=== PATIENT | male | born 1995 | race Caucasian/White ===

== ENCOUNTER 2016-09-15 07:58 | Day surgery (SDC) | payer OTHER ==
[2016-09-15] VITALS (14 sets, daily range): BP systolic 95–123; BP diastolic 34–80
[~2016-09-15] VITALS: Ht 177.8 cm; Wt 83.9 kg
--- NOTE | 2016-09-15 07:17 | Pre-Procedure Note/Attestation ---
Pre-Procedure Note/Attestation Complete Prior to Procedure Planned Procedure: right Procedure Narrative: knee arthroscopic medial meniscus repair Indications for Procedure Pre-Operative Diagnosis: right knee medial meniscus tear Attestation I attest that I discussed the nature of the procedure; its benefits; risks and complications; and alternatives (and the risks and benefits of such alternatives ), prior to the procedure, with the patient (or the patient's legal tax representative). I attest that, if there was a reasonable possibility of needing a blood transfusion, the patient (or the patient's legal tax representative) was given the [facility] standardized written summary, pursuant to the Juarez Davis Blood Safety Act ([place] Health and Safety Code # 1645, as amended). I attest that I re-evaluated the patient just prior to the surgery and that there has been no change in the patient's H&P, except as documented below: PIA BRUNSON Sep 15, 2016 07:17
--- NOTE | 2016-09-15 07:18 | Operative Note - PDOC ---
Operative Note Operative Note Pre-op Diagnosis: right knee medial meniscus tear Procedure: se op report Post-op Diagnosis: same as pre-op plus Operative Findings: consistent w/pre-op dx studies Anesthesia: MAC Specimen: none Complications: none Condition: stable Estimated Blood Loss: none Implant(s) used?: Yes PIA BRUNSON Sep 15, 2016 07:18
[~2016-09-15 07:58] MED LIST: Clindamycin 600mg 50 ML IV ONE; HYDROmorphone 1mg/ml Carpuject SUBQ PRN; NKM; Norco 5mg/325mg tab ORAL PRN; Tylenol #3 tab (300mg/30mg) ORAL PRN; celeBREX 200mg Cap **SURGERY PATIENTS ONLY ORAL ONE; oxyCONTIN 20mg tab ORAL ONE
[2016-09-15 08:29] LABS: APPEARANCE,URINE CLEAR; KETONES,URINE NEGATIVE (NEGATIVE); LEUKOCYTE ESTERASE ,URINE NEGATIVE (NEGATIVE); NITRITE,URINE NEGATIVE (NEGATIVE); PH,URINE 5 (4.5-8.0); PROTEIN,URINE NEGATIVE (NEGATIVE); UROBILINOGEN,URINE NORMAL MG/DL (0.0-1.0)
[2016-09-15 08:37] LABS: BACTERIA,URINE FEW /HPF; MUCUS,URINE FEW /LPF (NONE/OCC); RBC,URINE 0-2 /HPF (0 - 0); SQUAMOUS EPITHELIAL CELL,UR OCCASIONAL /LPF (NONE/OCC); WBC,URINE 0-2 /HPF (0 - 0)
[2016-09-15 09:18] LABS: BASOPHILS % (AUTO) 0.6 % (0.0-2.0); EOSINOPHILS % (AUTO) 1.6 % (0.0-3.0); LYMPHOCYTES % (AUTO) 32.4 % (20.0-45.0); MEAN CORPUSCULAR HEMOGLOBIN 28.5 PG (27.0-31.0); MEAN CORPUSCULAR HGB CONC 32.1 G/DL (32.0-36.0); MEAN CORPUSCULAR VOLUME 89 FL (80-99); MEAN PLATELET VOLUME 6.7 FL (6.5-10.1); NEUTROPHILS % (AUTO) 55.4 % (45.0-75.0); PLATELET COUNT 248 K/UL (150-450); RED BLOOD COUNT 5.94 M/UL (4.70-6.10); RED CELL DISTRIBUTION WIDTH 11.6 % (11.6-14.8); WHITE BLOOD COUNT 5.4 K/UL (4.8-10.8)
[2016-09-15 09:33] LABS: ALANINE AMINOTRANSFERASE 27 U/L (3-41); ALBUMIN/GLOBULIN RATIO 1.7 (1.0-2.7); ANION GAP 10 (5-15); ASPARTATE AMINO TRANSFERASE 28 U/L (5-40); CARBON DIOXIDE 28 mEQ/L (20-30); CHLORIDE 101 mEQ/L (98-107); CREATININE 0.8 mg/dL (0.7-1.2); GLOMERULAR FILTRATION RATE > 60 mL/min (>60); HEMOLYSIS 14; POTASSIUM 4.1 mEQ/L (3.4-4.9); SODIUM 139 mEQ/L (135-145); TOTAL PROTEIN 7.7 g/dL (6.6-8.7)
[2016-09-15] MEDS ORDERED: Kenalog-40 1ml Vial ONE (10:20)
[2016-09-15] MEDS ORDERED: Lidocaine 1% Plain 30 ml INJ ONE (10:20)
[2016-09-15] MEDS ORDERED: Morphine Sulfate PF 0 ML ONE (10:20)
[2016-09-15] MEDS ORDERED: Ketorolac 30mg Inj ONE (10:20)
[2016-09-15] MEDS ORDERED: Bupivacaine 0.25% Inj 30ml INJ ONE (10:21)
[2016-09-15] MEDS ORDERED: Bupivacaine w/Epi 0.5% 30ml Vial INJ ONE (10:21)
[2016-09-15] MEDS ORDERED: Lidocaine 1% 10mg/ml/Epi 0.005mg/ml 30ml vial INJ ONE (10:22)
[2016-09-15] MEDS ORDERED: NS Irrig 1000ml ONE (10:30)
[2016-09-15] MEDS ORDERED: LR 1000ml ONE (10:30)
[2016-09-15] MEDS ORDERED: Midazolam 2mg/2ml Inj ONE (10:30)
[2016-09-15] MEDS ORDERED: Sterile Water Irrig 1000ml IRRIG ONE (10:30)
[2016-09-15] MEDS ORDERED: Propofol 10mg/ml 20ml IV ONE (10:30)
[2016-09-15] MEDS ORDERED: fentaNYL 100 mcg/2 mL IV ONE (10:30)
--- NOTE | 2016-09-15 10:59 | Anethesia Preoperative Eval ---
Anesthesia Pre-op PMH/ROS General Date of Evaluation: Sep 15, 2016 Time of Evaluation: 10:00 Anesthesiologist: adina ASA Score: ASA 1 Mallampati Score Class I : Soft palate, uvula, fauces, pillars visible Class II: Soft palate, uvula, fauces visible Class III: Soft palate, base of uvula visible Class IV: Only hard plate visible Mallampati Classification: Class I Anesthesia History: none Allergies: Coded Allergies: AMOXICILLIN (Verified Allergy, Unknown, 09/14/16) Anesthesia Pre-op Phys. Exam Physician Exam Last Vital Signs Date Time Temp Pulse Resp B/P Pulse Ox O2 Delivery O2 Flow Rate FiO2 09/15/16 09:03 97.7 60 20 113/68 99 Room Air Anesthesia Pre-op A/P Labs Hematology Test 09/15/16 09:00 White Blood Count 5.4 K/UL (4.8-10.8) Red Blood Count 5.94 M/UL (4.70-6.10) Hemoglobin 16.9 G/DL (14.2-18.0) Hematocrit 52.7 % (42.0-52.0) H Mean Corpuscular Volume 89 FL (80-99) Mean Corpuscular Hemoglobin 28.5 PG (27.0-31.0) Mean Corpuscular Hemoglobin Concent 32.1 G/DL (32.0-36.0) Red Cell Distribution Width 11.6 % (11.6-14.8) Platelet Count 248 K/UL (150-450) Mean Platelet Volume 6.7 FL (6.5-10.1) Neutrophils (%) (Auto) 55.4 % (45.0-75.0) Lymphocytes (%) (Auto) 32.4 % (20.0-45.0) Monocytes (%) (Auto) 10.0 % (1.0-10.0) Eosinophils (%) (Auto) 1.6 % (0.0-3.0) Basophils (%) (Auto) 0.6 % (0.0-2.0) Coagulation Test 09/15/16 09:00 Prothrombin Time 10.0 SEC (9.30-11.50) Prothromb Time International Ratio 1.0 (0.9-1.1) Activated Partial Thromboplast Time 28 SEC (23-33) Chemistry Test 09/15/16 09:00 Sodium Level 139 mEQ/L (135-145) Potassium Level 4.1 mEQ/L (3.4-4.9) Chloride Level 101 mEQ/L (98-107) Carbon Dioxide Level 28 mEQ/L (20-30) Anion Gap 10 (5-15) Blood Urea Nitrogen 18 mg/dL (7-23) Creatinine 0.8 mg/dL (0.7-1.2) Estimat Glomerular Filtration Rate > 60 mL/min (>60) Glucose Level 98 mg/dL (74-106) Calcium Level 10.0 mg/dL (8.6-10.2) Total Bilirubin 0.5 mg/dL (0.0-1.2) Aspartate Amino Transf (AST/SGOT) 28 U/L (5-40) Alanine Aminotransferase (ALT/SGPT) 27 U/L (3-41) Alkaline Phosphatase 95 U/L (40-129) Total Protein 7.7 g/dL (6.6-8.7) Albumin 4.9 g/dL (3.5-5.2) Globulin 2.8 g/dL Albumin/Globulin Ratio 1.7 (1.0-2.7) Juan F Estrada MD Sep 15, 2016 10:59
[2016-09-15] MEDS ORDERED: Midazolam 2mg/2ml Inj IVP PRN (11:00)
[2016-09-15] MEDS ORDERED: Ketorolac 30mg Inj IV PRN (11:00)
[2016-09-15] MEDS ORDERED: fentaNYL 100 mcg/2 mL IV PRN (11:00)
--- NOTE | 2016-09-15 11:33 | Immediate Post-Op Evaluation ---
Immediate Post-Op Evalulation Immediate Post-Op Evalulation Procedure: knee arthroscopy Date of Evaluation: Sep 15, 2016 Time of Evaluation: 11:33 Nausea: No Vomiting: No Hydration Status: adequate Given Within 1 Hr of Incision: Yes Juan F Estrada MD Sep 15, 2016 11:33
[2016-09-15] MEDS ORDERED: D5 1/2NS 1,000 ML IV SCH (12:00)
--- NOTE | 2016-09-15 21:15 | Operative Note - Dictated ---
DATE OF OPERATION: 09/15/2016 PREOPERATIVE DIAGNOSIS: Right knee bucket-handle medial meniscus tear. POSTOPERATIVE DIAGNOSIS: Right knee bucket-handle medial meniscus tear. PROCEDURES: 1. Right knee arthroscopic medial meniscus repair to his right knee. 2. Medial and lateral patellofemoral synovectomy. SURGEON: Jay Acuña M.D. ANESTHESIA: General. INDICATION FOR THE PROCEDURE: The patient is a pleasant 21-year-old gentleman, who presented with a locked knee. We attempted to get an MRI, which consistent with a bucket-handle medial meniscus tear. We proceeded with the right knee arthroscopic medial meniscus repair versus meniscectomy. Risks, limitations, expectations and complications of the procedure were discussed in detail including the chance of failure, neurovascular damage, infection, open wound, need for future surgery, risk of anesthesia, medical complications, etc. All questions were addressed. DESCRIPTION OF PROCEDURE: An informed consent was obtained. The patient was brought to the operating room and placed under general anesthesia. Tourniquet was applied to the proximal right leg. The right leg was prepped and draped in a sterile manner. Time-out was performed. A 0.25% Marcaine plain was injected into the right knee. Postop injected 1% lidocaine with epinephrine. Inferolateral Esmarch was used to exsanguinate the extremity. Inferolateral stab incision was then made. Trocar was introduced in the knee joint. There is a displaced medial meniscus bucket-handle tear. Synovectomy of the medial and lateral patellofemoral compartment was performed. Once that was done to allow a better visualization of the bucket-handle tear as well as the ability to put instrument in and out of the knee, the bucket-handle meniscus was then reduced. Once it was reduced, a Fast-Fix anchor was then used to secure the medial meniscus repair. Once that was completed, and the meniscus was noted to be stable, instruments removed. Portal sites were closed with 3-0 Monocryl sutures. The patient was awoken and taken to the recovery room with stable signs. ESTIMATED BLOOD LOSS: Minimal. COMPLICATIONS: None. SPECIMENS: None. IMPLANTS: Two Fast-Fix anchors. Jay Acuña M.D. DR: TERRANCE JOB#: [id number] CC:
== END 2016-09-15 15:10 | disposition home or self-care (01) ==
LOC: SUR 07:58
DX: S83.211A Bucket-handle tear of medial meniscus, current injury, right knee, initial encounter (principal); X58.XXXA Exposure to other specified factors, initial encounter; Y92.89 Other specified places as the place of occurrence of the external cause; Y99.9 Unspecified external cause status; I25.10 Atherosclerotic heart disease of native coronary artery without angina pectoris; I49.9 Cardiac arrhythmia, unspecified; Z88.1 Allergy status to other antibiotic agents
CPT/HCPCS: 36415; 80053; 81001; 85025; 85610; 85730; 94003; 94150; J2250

== ENCOUNTER 2017-06-29 05:57 | Day surgery (SDC) | payer OTHER ==
[~2017-06-29] VITALS: Ht 177.8 cm; Wt 86.2 kg
[2017-06-29] VITALS (13 sets, daily range): BP systolic 112–126; BP diastolic 50–67
[~2017-06-29 05:57] MED LIST changes: -Clindamycin 600mg 50 ML IV ONE; -HYDROmorphone 1mg/ml Carpuject SUBQ PRN; -Norco 5mg/325mg tab ORAL PRN; -Tylenol #3 tab (300mg/30mg) ORAL PRN; -celeBREX 200mg Cap **SURGERY PATIENTS ONLY ORAL ONE; -oxyCONTIN 20mg tab ORAL ONE
[2017-06-29] MEDS ORDERED: oxyCONTIN 20mg tab ORAL SCH (06:00)
[2017-06-29] MEDS ORDERED: Clindamycin 600mg in D5W 50ml IV SCH (06:00)
[2017-06-29] MEDS ORDERED: celeBREX 200mg Cap **SURGERY PATIENTS ONLY ORAL SCH (06:00)
[2017-06-29] MEDS ORDERED: Propofol 200mg/20ml IV ONE (07:01)
[2017-06-29] MEDS ORDERED: Dexamethasone 4mg/ml vial ONE ×2 (07:01→07:35)
[2017-06-29] MEDS ORDERED: Sodium Chloride 10ml vial INJ ONE (07:02)
[2017-06-29] MEDS ORDERED: Lidocaine 1% MPF 10mg/ml 5ml ONE (07:02)
[2017-06-29] MEDS ORDERED: Morphine Sulfate PF 10 ML ONE (07:06)
[2017-06-29] MEDS ORDERED: Ketorolac 30mg Inj ONE (07:06)
[2017-06-29] MEDS ORDERED: EPINEPHrine 1mg/1ml Amp ONE ×2 (07:06→07:35)
[2017-06-29] MEDS ORDERED: Lidocaine 1% 10mg/ml/Epi 0.005mg/ml 30ml vial INJ ONE (07:06)
[2017-06-29] MEDS ORDERED: Kenalog-40 1ml Vial ONE (07:06)
[2017-06-29] MEDS ORDERED: Alfentanil 2ml Inj ONE (07:06)
[2017-06-29] MEDS ORDERED: Bupivacaine 0.25% Inj 30ml INJ ONE (07:07)
[2017-06-29] MEDS ORDERED: LR 1000ml 1,000 ML IVLG SCH (07:11)
[2017-06-29] MEDS ORDERED: Atropine Inj 1mg/10ml Syr IV PRN (07:15)
[2017-06-29] MEDS ORDERED: DiphenhydrAMINE 50mg/ml Inj IVP PRN (07:15)
[2017-06-29] MEDS ORDERED: oxyCODONE HCL/Acetaminophen 5/325mg ORAL PRN (07:15)
[2017-06-29] MEDS ORDERED: LORazepam Inj 2mg/ml 1ml IV PRN (07:15)
[2017-06-29] MEDS ORDERED: HYDROcodone/Acetamin 7.5/325 tab ORAL PRN (07:15)
[2017-06-29] MEDS ORDERED: Hydromorphone 0.5mg/0.5ml inj IVP PRN (07:15)
[2017-06-29] MEDS ORDERED: Labetalol 5mg/ml 20ml vial IV PRN (07:15)
[2017-06-29] MEDS ORDERED: fentaNYL 100 mcg/2 mL IV PRN (07:15)
[2017-06-29] MEDS ORDERED: Norco 5mg/325mg tab ORAL PRN ×2 (07:15→14:01)
[2017-06-29] MEDS ORDERED: Ketorolac 30mg Inj IV PRN ×2 (07:15)
[2017-06-29] MEDS ORDERED: Midazolam 2mg/2ml Inj IVP PRN (07:15)
--- NOTE | 2017-06-29 07:15 | Anethesia Preoperative Eval ---
Anesthesia Pre-op PMH/ROS General Date of Evaluation: Jun 29, 2017 Time of Evaluation: 07:36 Anesthesiologist: Ayla ASA Score: ASA 2 Mallampati Score Class I : Soft palate, uvula, fauces, pillars visible Class II: Soft palate, uvula, fauces visible Class III: Soft palate, base of uvula visible Class IV: Only hard plate visible Mallampati Classification: Class I Surgeon: Domenico Diagnosis: R Knee Pain Surgical Procedure: R Knee Arthroscopy Anesthesia History: none Family History: no anesthesia problems Allergies: Coded Allergies: AMOXICILLIN (Verified Allergy, Intermediate, rash , 06/29/17) Medications: see eMAR Past Medical History Pulmonary: Reports: other - Bronchitis Anesthesia Pre-op Phys. Exam Physician Exam Last Vital Signs Date Time Temp Pulse Resp B/P (MAP) Pulse Ox O2 Delivery O2 Flow Rate FiO2 06/29/17 06:19 97.0 62 19 119/61 98 Room Air 97.0 Constitutional: NAD Neurologic: CN 2-12 intact Cardiovascular: RRR Respiratory: CTA Gastrointestinal: S/NT/ND Airway Exam Mallampati Score: Class II MO: full ROM: full Teeth: intact Anesthesia Pre-op A/P Risk Assessment & Plan Assessment: ASA 2 Plan: GA, BIS Status Change Before Surgery: No Pre-Antibiotics Dru Gram Ancef IV Given Within 1 Hr of Incision: Yes Time Given: 07:51 Orion Aguila MD Jun 29, 2017 07:15
--- NOTE | 2017-06-29 07:16 | Immediate Post-Op Evaluation ---
Immediate Post-Op Evalulation Immediate Post-Op Evalulation Procedure: R Knee Arthroscopy Date of Evaluation: Jun 29, 2017 Time of Evaluation: 09:42 IV Fluids: 1000 LR Blood Products: 0 Estimated Blood Loss: 25 Urinary Output: 0 Blood Pressure Systolic: 117 Blood Pressure Diastolic: 58 Pulse Rate: 62 Respiratory Rate: 16 O2 Sat by Pulse Oximetry: 100 Temperature (Fahrenheit): 98.2 Pain Score (1-10): 2 Nausea: No Vomiting: No Complications 0 Patient Status: awake, reacts, patent, extubated, none Hydration Status: adequate Dru Gram Ancef IV Given Within 1 Hr of Incision: Yes Time Given: 07:51 Orion Aguila MD Jun 29, 2017 07:16
--- NOTE | 2017-06-29 07:17 | 48 Hour Post Anesthesia Eval ---
Post Anesthesia Evaluation Procedure: R Knee Arthroscopy Date of Evaluation: Jun 29, 2017 Time of Evaluation: 11:53 Blood Pressure Systolic: 112 0: 76 Pulse Rate: 64 Respiratory Rate: 18 Temperature (Fahrenheit): 98.4 O2 Sat by Pulse Oximetry: 100 Airway: patent Nausea: No Vomiting: No Pain Intensity: 2 Hydration Status: adequate Cardiopulmonary Status: Stable Mental Status/LOC: patient returned to baseline Follow-up Care/Observations: 0 Post-Anesthesia Complications: 0 Follow-up care needed: ready to discharge Orion Aguila MD Jun 29, 2017 07:17
[2017-06-29] MEDS ORDERED: LR 1000ml ONE (07:30)
[2017-06-29] MEDS ORDERED: NS Irrig 1000ml ONE (07:30)
[2017-06-29] MEDS ORDERED: Sterile Water Irrig 1000ml IRRIG ONE (07:30)
[2017-06-29] MEDS ORDERED: Ropivacaine 5mg/ml Vial 30ml INJ ONE (07:35)
--- NOTE | 2017-06-29 07:41 | Operative Note - PDOC ---
Operative Note Operative Note Pre-op Diagnosis: right knee medial meniscus tear Procedure: see op report Post-op Diagnosis: same as pre-op plus Operative Findings: consistent w/pre-op dx studies Anesthesia: MAC Specimen: none Complications: none Condition: stable Estimated Blood Loss: none Implant(s) used?: Yes PIA BRUNSON Jun 29, 2017 07:41
--- NOTE | 2017-06-29 07:41 | Pre-Procedure Note/Attestation ---
Pre-Procedure Note/Attestation Complete Prior to Procedure Planned Procedure: right Procedure Narrative: knee arthroscopy, possible meniscus repair and PRP injection Indications for Procedure Pre-Operative Diagnosis: right knee medial meniscus tear Attestation I attest that I discussed the nature of the procedure; its benefits; risks and complications; and alternatives (and the risks and benefits of such alternatives ), prior to the procedure, with the patient (or the patient's legal b2b sales representative). I attest that, if there was a reasonable possibility of needing a blood transfusion, the patient (or the patient's legal b2b sales representative) was given the [facility] standardized written summary, pursuant to the Juarez Manuel Blood Safety Act ([place] Health and Safety Code # 1645, as amended). I attest that I re-evaluated the patient just prior to the surgery and that there has been no change in the patient's H&P, except as documented below: PIA BRUNSON Jun 29, 2017 07:41
[2017-06-29] MEDS ORDERED: Duramorph PF 10mg/10ml amp IV ONE (08:31)
--- NOTE | 2017-06-29 13:30 | Operative Note - Dictated ---
DATE OF OPERATION: 06/29/2017 PREOPERATIVE DIAGNOSIS: Right knee possible recurrent medial meniscus tear. POSTOPERATIVE DIAGNOSES: 1. Right knee intrameniscal degeneration, posterior horn of medial meniscus. 2. Torn Fastfix suture. 3. Symptomatic plica. PROCEDURES: 1. Right knee arthroscopy. 2. Excision of medial plica. 3. Synovectomy, medial and intercondylar notch. 4. Platelet-rich plasma injection into the posterior horn of medial meniscus. 5. Removal of intraarticular loose body measuring 5 mm in length. SURGEON: Jay Acuña M.D. ANESTHESIA: General with femoral adductor block. INDICATION FOR PROCEDURE: The patient is a pleasant gentleman who underwent right knee medial meniscus tear. The patient then went to physical therapy and all of a sudden had pain and discomfort, therefore had a repeat MRI which showed concern for retear. Given that he failed conservative treatment, he elected to undergo diagnostic arthroscopy, possible revision, meniscal repair. Risks, limitations, expectations, and complications of procedure were discussed in detail. All questions were addressed. DESCRIPTION OF PROCEDURE: Informed consent was obtained. The patient was brought to the operating room and placed under general anesthesia. Ancef was administered. Time-out was performed. Right leg was prepped and draped in sterile manner. A posterolateral stab incision was then made. Trocar was introduced in the knee joint. At this point, the patellofemoral compartment was evaluated. No significant chondral damage. There was a band of tissue along the medial plica which was rubbing against the femoral condyle. Medial compartment was entered. Medial working portal was established. At this point, the meniscus was probed and noted to be stable. The margins were probed aggressively to make sure that there was no tear that was causing symptoms. The most anteromedial anchor was noted to be broken and therefore, the suture was removed. Once that was done, the synovectomy of the medial compartment was performed. The intercondylar notch was entered. 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 Synovectomy of this area was performed to better visualize the ACL. ACL was probed and noted to be intact. Lateral compartment was entered, free of any meniscal or chondral damage. Camera was repositioned in the patellofemoral compartment and excision of the medial plica was performed. Once that was done, the camera was placed in the medial working portal. Spinal needle was then placed in the lateral portal into the middle body of the meniscus and 8 mL of platelet-rich plasma was then injected into this area. Once that was done, the instruments were removed. Portal sites were closed using 3-0 Monocryl sutures. Steri-Strips and sterile dressing were applied. The patient was awoken and taken to recovery room with stable vital signs. ESTIMATED BLOOD LOSS: None. COMPLICATIONS: None. SPECIMENS: None. IMPLANTS: None. Jay Acuña M.D. DR: Jane JOB#: [id number] CC: LILIANA
[2017-06-29] MEDS ORDERED: D5 1/2NS 1,000 ML IV SCH (14:01)
[2017-06-29] MEDS ORDERED: Tylenol #3 tab (300mg/30mg) ORAL PRN (14:01)
== END 2017-06-29 11:50 | disposition home or self-care (01) ==
LOC: SUR 05:57
DX: M23.321 Other meniscus derangements, posterior horn of medial meniscus, right knee (principal); M67.51 Plica syndrome, right knee; Z88.8 Allergy status to other drugs, medicaments and biological substances
CPT/HCPCS: 0232T; 29874; 29876; J0171; J0690; J1100; J1885; J2250; J2274; J2405; J2704; J2795; J3301; J3490